=== PATIENT | female | born 1985 | race African-American/Black ===

== ENCOUNTER 2017-12-16 08:41 | Emergency (ER) | payer MEDICAID, OTHER ==
[~2017-12-16] VITALS: Ht 172.7 cm; Wt 100.0 kg
[2017-12-16 08:45] VITALS: BP 129/84
== END 2017-12-16 11:14 | disposition home or self-care (01) ==
LOC: ER 08:51
DX: L03.213 Periorbital cellulitis (principal); F17.200 Nicotine dependence, unspecified, uncomplicated
CPT/HCPCS: 99283

== ENCOUNTER 2018-07-21 22:13 | Emergency (ER) | payer SELFPAY ==
[~2018-07-21] VITALS: Ht 167.6 cm; Wt 90.0 kg
[2018-07-21] MEDS ORDERED: HYDROCODONE/ACETAMINOPHEN 5/325MG TABLET PO ONE (23:15)
[2018-07-22 03:19] VITALS: BP 122/82
== END 2018-07-22 03:24 | disposition home or self-care (01) ==
LOC: ER 22:13
DX: S83.8X2A Sprain of other specified parts of left knee, initial encounter (principal); S40.022A Contusion of left upper arm, initial encounter; S10.83XA Contusion of other specified part of neck, initial encounter; F17.200 Nicotine dependence, unspecified, uncomplicated; V49.88XA Car occupant (driver) (passenger) injured in other specified transport accidents, initial encounter; Y93.89 Activity, other specified; Y92.89 Other specified places as the place of occurrence of the external cause; Y99.8 Other external cause status; Z98.890 Other specified postprocedural states
CPT/HCPCS: 71045; 72040; 73060; 73070; 73090; 73560; 99284; A4565

== ENCOUNTER 2018-08-04 09:58 | Emergency (ER) | payer MEDICAID ==
[~2018-08-04] VITALS: Ht 170.2 cm; Wt 101.6 kg
[2018-08-04] MEDS ORDERED: IBUPROFEN 600MG TABLET PO ONE (10:45)
[2018-08-04] MEDS ORDERED: OXYCODONE HCL/ACETAMINOPHEN 5/325MG TABLET PO ONE (10:45)
[2018-08-04 11:51] VITALS: BP 128/76
== END 2018-08-04 11:52 | disposition home or self-care (01) ==
LOC: ER 11:39
DX: M54.5 Low back pain (principal); F17.200 Nicotine dependence, unspecified, uncomplicated; Z98.890 Other specified postprocedural states; V43.52XA Car driver injured in collision with other type car in traffic accident, initial encounter; Y93.89 Activity, other specified; Y92.488 Other paved roadways as the place of occurrence of the external cause
CPT/HCPCS: 72100; 99284

== ENCOUNTER 2022-03-28 15:51 | Emergency (ER) | payer MEDICAID, OTHER ==
[~2022-03-28] VITALS: Ht 167.6 cm; Wt 95.0 kg
[2022-03-28] MEDS ORDERED: HYDROCODONE/ACETAMINOPHEN 5/325MG TABLET PO ONE (17:00)
[2022-03-28] MEDS ORDERED: HYDROCODONE/ACETAMINOPHEN 5/325MG TABLET PO NR (18:15)
[2022-03-28] MEDS ORDERED: NAPR-681 MT (18:22)
[2022-03-28 18:46] VITALS: BP 139/81
== END 2022-03-28 18:46 | disposition home or self-care (01) ==
LOC: ER 15:51
DX: M79.18 Myalgia, other site (principal); M79.671 Pain in right foot; Z98.890 Other specified postprocedural states; V43.52XA Car driver injured in collision with other type car in traffic accident, initial encounter; Y93.89 Activity, other specified; Y92.488 Other paved roadways as the place of occurrence of the external cause
CPT/HCPCS: 73030; 73080; 73630; 99284; Z7610